=== PATIENT | male | born 2000 | race Caucasian/White ===

== ENCOUNTER 2025-03-19 00:32 | Emergency (ER) | payer MEDICAID ==
[~2025-03-19] VITALS: Ht 167.6 cm; Wt 87.0 kg
[2025-03-19 00:50] VITALS: O2SAT 100
[2025-03-19] MEDS ORDERED: MUPI1OIN4 TP (02:05)
[2025-03-19] MEDS ORDERED: CEPH500C2 MT (02:05)
[2025-03-19 03:00] VITALS: BP 126/78; PULSE 80; RESP 18; TEMP 36.7; O2SAT 100
== END 2025-03-19 03:45 | disposition home or self-care (01) ==
LOC: ER 01:10
DX: L03.031 Cellulitis of right toe (principal); J45.909 Unspecified asthma, uncomplicated
CPT/HCPCS: 99283